=== PATIENT | female | born 1985 | race Caucasian/White ===

== ENCOUNTER 2016-09-24 16:26 | Emergency (ER) | payer SELFPAY ==
[2016-09-24 16:33] VITALS: TEMP 97.5
--- NOTE | 2016-09-24 17:09 | EDPHY ---
H & P Time Seen by Provider: 09/24/16 16:46 HPI/ROS: CHIEF COMPLAINT: Left woodson pain HISTORY OF PRESENT ILLNESS: 31-year-old female presents to the emergency department complaining of severe pain in her left anterior woodson. She states over last for 5 days she has had ongoing pain. She feels that it might be getting a bit better although has not resolved. Pain is especially worse when she tries to bear weight when she is on her feet for long period time. Denies any known trauma or injury although does have a history of restless leg syndrome and may have kicked the wall or piece of furniture at night. She does not notice any swelling. Denies any other trauma or injury. ROS: Denies numbness or tingling in her toes, pain in her left ankle or knee. Past Medical/Surgical History: Restless leg syndrome Social History: Recently moved here from [place] Smoking Status: Current every day smoker Physical Exam: On examination there is no obvious swelling noted to the left lower leg compared to the right side. She has a small area of excoriation to the left anterior, mid lower leg. No signs of cellulitis. No redness or warmth. She has reproducible pain with palpation along the anterior mid shaft of the tibia as well as just to the lateral, anterior aspect of the left lower leg. No palpable crepitus or other bony abnormality. Normal sensation to light touch. Strong dorsalis pedis pulse on the dorsal aspect of her left foot. Her left ankle is nontender. Left knee is nontender. No effusion noted to the ankle or the knee. Constitutional: Initial Vital Signs Temperature (C) 36.4 C 09/24/16 16:30 Heart Rate 116 H 09/24/16 16:30 Respiratory Rate 22 H 09/24/16 16:30 Blood Pressure 113/79 09/24/16 16:30 O2 Sat (%) 100 09/24/16 16:30 O2 Delivery Mode Room Air Allergies/Adverse Reactions: No Known Allergies Allergy (Unverified 09/24/16 16:30) Home Medications: Medication Instructions Recorded NK [No Known Home Meds] 09/24/16 MDM/Departure - MDM Imaging Results: Imaging Impressions Tibia/Fibula X-Ray 09/24/16 17:06 Impression: Negative. If clinically indicated a limited nuclear bone scan or noncontrast MRI would be definitive. ED Course/Re-evaluation: 31-year-old female presents to the emergency department with left woodson pain. She states that it is possible that she could have kicked the wall since she has severe restless leg syndrome. Patient does have reproducible pain with palpation to the anterior aspect of her left leg both along the midshaft of the tibia as well as along the tibialis anterior muscle. Patient has no pain at rest. I doubt compartment syndrome. Her compartments are soft. She has full range of motion of her left lower extremity. X-rays were negative for fracture. I doubt compression fracture. I doubt DVT. She has no calf pain or swelling. She has no calf tenderness with palpation. The patient was given orthopedic referral. She was given strict instructions to elevate her leg for comfort. She will take anti-inflammatories and return if she has any other concerns. - Depart Disposition: Home, Routine, Self-Care Clinical Impression: Contusion of left leg Qualifiers: Encounter type: initial encounter Qualified Code(s): S80.12XA - Contusion of left lower leg, initial encounter Condition: Good Instructions: Contusion in Adults (ED) Additional Instructions: Elevate your leg for comfort and support. You may apply ice as needed he is to help relieve pain. Ibuprofen 600 mg every 8 hours as needed for pain. Weightbear and activity as tolerated. I do not think you have any evidence of compartment syndrome. If you notice increasing swelling, pain especially at rest, or if you feel worse in any way, she should return to the emergency department immediately. Stand Alone Forms: Work Excuse Referrals: Bryce Daniel MD [Medical Doctor] - 2-3 days, call for appt. (Orthopedic surgeon on-call)
[2016-09-24 17:50] VITALS: BP 122/81; PULSE 91; RESP 18; O2SAT 95
== END 2016-09-24 17:50 | disposition home or self-care (01) ==
DX: S80.12XA Contusion of left lower leg, initial encounter (principal); F17.200 Nicotine dependence, unspecified, uncomplicated; X58.XXXA Exposure to other specified factors, initial encounter; Y99.8 Other external cause status; Y93.89 Activity, other specified

== ENCOUNTER 2017-10-31 13:46 | Inpatient (IN) | payer MEDICAID ==
--- NOTE | 2017-10-31 14:33 | EDPHY ---
H & P Stated Complaint: iv drug use/cellulitis r arm Time Seen by Provider: 10/31/17 13:53 HPI/ROS: Chief Complaint: Left wrist pain and swelling HPI: 32-year-old IV drug abuser presenting with worsening left pain redness and swelling for the last week. She states this started after she missed while injecting heroin and meth 1 week ago. She has a history of sutures abscesses in the past. Been having increasing redness. Increasing pain. It is quite swollen. Some subjective fevers or chills. No nausea or vomiting. Her last IV drug use was this morning. ROS: 10 systems were reviewed and were negative except those elements noted in the HPI. PMH: IV drug use Social History: Positive smoking, positive alcohol, IV heroin and meth Family History: non-contributory Physical Exam: Gen: Awake, Alert, No Distress HEENT: Nose: no rhinorrhea Eyes: PERRLA, EOMI Mouth: Moist mucosa Neck: Supple, no JVD Chest: nontender, lungs clear to auscultation Heart: S1, S2 normal, no murmur Abd: Soft, non-tender, no guarding Back: no CVA tenderness, no midline tenderness Ext: Right volar wrist is dramatically swollen with significant erythema, slight tenderness warm to touch. There is no lymphangitic streaking Skin: no rash Neuro: CN II-XII intact, Sensation grossly intact, Strength 5/5 in bilateral upper and lower extremities - Personal History LMP (Females 10-55): 8-14 Days Ago Current Tetanus/Diphtheria Vaccine: Yes - Medical/Surgical History Hx Asthma: No Hx Chronic Respiratory Disease: No Hx Diabetes: No Hx Cardiac Disease: No Hx Renal Disease: No Hx Cirrhosis: No Hx Alcoholism: No Hx HIV/AIDS: No Hx Splenectomy or Spleen Trauma: No Other PMH: denies - Social History Smoking Status: Current every day smoker Constitutional: Initial Vital Signs Temperature (C) 36.4 C 10/31/17 13:50 Heart Rate 74 10/31/17 13:50 Respiratory Rate 18 10/31/17 13:50 Blood Pressure 114/80 10/31/17 13:50 O2 Sat (%) 98 10/31/17 13:50 O2 Delivery Mode Room Air Allergies/Adverse Reactions: No Known Allergies Allergy (Verified 10/31/17 13:50) Home Medications: Medication Instructions Recorded NK [No Known Home Meds] 09/24/16 Medical Decision Making Procedures: Procedure: Abscess drainage. The patient's abscess was located on the right wrist. I obtained verbal consent from the patient to drain the abscess who was informed about the possibility of bleeding and pain. The abscess was incised with a 11 blade scalpel and a large amount of purulent drainage was expressed. I irrigated the wound and placed some packing. The patient tolerated the procedure well. The procedure was performed by myself. ED Course/Re-evaluation: 32-year-old woman with a deep right wrist sutures abscess with surrounding cellulitis. I have drained it with a large amount of pus and packing in place. IV is been placed. She will require IV antibiotics. Blood cultures and wound cultures have been ordered. I have ordered a g of vancomycin. Discussed with Dr. Yuan. He will admit to his service for further care. Departure - Departure Disposition: [facility] Inpatient Acute Clinical Impression: Abscess, Cellulitis Condition: Fair
[2017-10-31] MEDS ORDERED: VANCOMYCIN HCL/NORMAL SALINE 250 ML IV ONE (14:34)
[2017-10-31] MEDS ORDERED: ONDANSETRON 4 MG/2 ML VIAL IVP PRN (15:19)
[2017-10-31] MEDS ORDERED: ONDANSETRON DISINTEGRATING 4 MG TAB PO PRN (15:19)
[2017-10-31 15:28] LABS: PLATELET COUNT 229 10^3/uL (150-400)
[2017-10-31] MEDS ORDERED: HYDROmorphONE/DILAUDID 1 MG/ML INJ IVP ONE (16:02)
[2017-10-31] MEDS ORDERED: GADOBUTROL 10 ML VIAL IVP ONE (16:35)
--- NOTE | 2017-10-31 16:42 | GHP ---
DATE OF ADMISSION: 10/31/2017 HISTORY OF PRESENT ILLNESS: Ms. Velasquez is a pleasant 32-year-old female with a history of IV drug use and previous abscesses, presents with an abscess in her right forearm. She shot methamphetamine about 1 week ago and suspect she missed the vein. She had a local reaction with pain and swelling and erythema that perhaps got better for a couple days and then in the last 2 days she has had increased pain and increased swelling in her hands. She has also had subjective fevers and chills. She has been tested for HIV and hepatitis C 7 months ago and were negative. It sounds like she has an on and off use of IV drugs going over about a 10-year period. She does not have a rash in her skin. She has not had drenching night sweats. REVIEW OF SYSTEMS: Complete 10-point review of systems conducted. Negative except as noted in the HPI. PAST MEDICAL HISTORY: IV drug use, shooter's abscesses, childhood asthma. She was also told she had a cardiomyopathy as a child. She does not have heart failure symptoms now. ALLERGIES: No known drug allergies. HOME MEDICATIONS: None. SOCIAL HISTORY: IV methamphetamine and heroin in the past. She does smoke cigarettes. 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 FAMILY HISTORY: Reviewed, unremarkable. PHYSICAL EXAMINATION: VITAL SIGNS: Temp 36.4, blood pressure 114/80, pulse 74 , breathing 18 times a minute, 98% on room air. GENERAL: No acute distress, emotional. HEENT: Sclerae anicteric. Oropharynx clear. Mucous membranes moist. NECK: Supple. No lymphadenopathy or JVD. LUNGS: Clear to auscultation bilaterally. HEART: S1, S2. There may be a 2/6 holosystolic murmur. ABDOMEN: Soft, nontender, nondistended. LOWER EXTREMITIES: Without edema. Her right upper extremity is erythematous. There is pain in her forearm with flexion of her pinky, but otherwise she does not have it. She has a bandaged abscess on the volar aspect of her right forearm. The skin is without rash. I have discussed the case with Dr. Alcides Melchor and Dr. Gabriel Mcleod. LABS: White count 12, hematocrit 38.4, platelets are 229,000. Sodium 137, potassium 3.5, chloride 103, bicarb 22, BUN 6, creatinine 0.5. LFTs are normal. Gram stain of the wound shows 4+ polynuclear white cells, 3+ gram- positive cocci in clusters. There is no imaging. ASSESSMENT AND PLAN: A 32-year-old female with abscess related to IV drug use. 1. Abscess. This has been drained in the emergency department. Given the concern of her arm and the duration of symptoms, the concern is a deeper abscess. I have ordered an MRI. Will have Hand Surgery see her. 2. Gram-positive cocci abscess. She has been started on vancomycin. 3. Heart murmur. The patient is not particularly hyperdynamic when I see her. We will hold off on ordering an echocardiogram depending on whether not she has a positive blood cultures. 4. Smoking. Recommend cessation. 5. Prophylaxis: Sequential compression devices. 6. Disposition: Inpatient. /[id number]/MODL MTDD
[2017-10-31] MEDS: NS 1,000 ML IV SCH (18:25)
[2017-10-31] MEDS: oxyCODONE IR 5 MG TAB PO PRN ×2 (18:34→21:55)
--- NOTE | 2017-10-31 18:43 | GCON ---
DATE OF CONSULTATION: 10/31/2017 REASON FOR CONSULTATION: Shooter's abscess, right forearm, with swelling and pain in the hand. HPI: Greg is a 32-year-old who shot IV methamphetamine into her right forearm about a week ago. Erin gutierres developed pain, redness, swelling since then. That brought her to the emergency room. Worsening o saravanan the last 2 days. She has a history of IV drug abuse on and off for at least the last 10 years. She was seen in the emergency department. The shooter's abscess was debrided and irrigated there. D ue to the swelling in her hand an MRI was obtained and I was asked to consult, given the degree of ramos nd swelling she was having. PRIOR MEDICAL HISTORY: IV drug use with history of shooter's abscess. ALLERGIES: No known drug allergies. MEDICATIONS: None. SOCIAL HISTORY: Uses both IV methamphetamine and heroin. Smokes 1 pack per day. Occasional alcohol use. PHYSICAL EXAM: VITAL SIGNS: Blood pressure is 119/85, heart rate 74, respiratory rate is 16. Oxyge n saturation is 97% on room air. She is alert and oriented x3. HEENT: Normocephalic, atraumatic. Extraocular muscles are intact. NECK: Supple. There is no lymphadenopathy. No JVD. CHEST: Clear to auscultation bilaterally. CARDIOVASCULAR: Regular rate and rhythm. ABDOMEN: Soft, nontender, nondistended. EXTREMITIES: Right forearm. There is occlusive dressing in place with blood on the d ressing. Forearm is red on the ulnar side mainly. There is some firmness in the compartment, but it is nontender to palpation. She can move her flexor tendons without undue distress there is no palpable tenderness along those te ndons into her hand. The hand is swollen but the hand compartments are soft as well. She has a 2+ r adial and ulnar pulses. Sensation to light touch. Intact radial, ulnar, median nerve distributions. MRI: Poor quality due to motion artifact, but there are no obvious visible deep abscesses. There is a significant cellulitis focus, more on the ulnar side of her arm. ASSESSMENT: Abscess with surrounding cellulitis, right forearm. PLAN: We will continue the IV antibiotics, per Dr. Yuan. If we do not see clinical improvement ov er 24-48 hours, we may have to revisit the idea of a formal irrigation and debridement in the operati ng room to try and decompress the cellulitis. Will continue to follow her. /[id number]/MODL
[2017-10-31] MEDS: ACETAMINOPHEN 325 MG TAB PO PRN (22:59)
[2017-11-01] MEDS: NS 1,000 ML IV SCH (02:25)
[2017-11-01] MEDS ORDERED: VANCOMYCIN HCL/NORMAL SALINE 250 ML IV SCH (05:00)
--- NOTE | 2017-11-01 08:49 | HOSPPROG ---
Hospitalist Progress Note Assessment/Plan: #RUE abscess and cellulitis: Related to IVDU. S/p I&D in ED. Wound culture with GPCs. MRI showing cellulitis, myositis, and fascitis. - Continue IV vancomycin, await cultures - Hand surgery following, appreciate assistance - Hold on TTE unless blood cx + #IVDU: Recommended cessation. #Tobacco use: Nicotine replacement as needed VTE ppx: SCDs Diet: regular Dispo: remain inpatient for IV antibiotics Subjective: Symptoms overall improved since admission. Still having some pain. No fevers. Objective: Vital Signs Temp Pulse Resp BP Pulse Ox 36.8 C 52 L 16 129/79 H 99 11/01/17 07:51 11/01/17 07:51 11/01/17 07:51 11/01/17 07:51 11/01/17 07:51 Laboratory Results 10/31/17 15:05 10/31/17 15:05 10/31/17 11/01/17 11/02/17 05:59 05:59 05:59 Intake Total 270 Balance 270 - Physical Exam Constitutional: no apparent distress, appears nourished, not in pain Eyes: PERRL, anicteric sclera, EOMI Ears, Nose, Mouth, Throat: moist mucous membranes, hearing normal, ears appear normal, no oral mucosal ulcers Cardiovascular: regular rate and rhythym, no murmur, rub, or gallop Respiratory: no respiratory distress, no rales or rhonchi, clear to auscultation Gastrointestinal: normoactive bowel sounds, soft, non-tender abdomen, no palpable masses Skin: no rashes or abrasions, no fluctuance, no induration Neurologic: AAOx3, sensation intact bilaterally Psychiatric: interacting appropriately, not anxious, not encephalopathic, thought process linear ICD10 Worksheet Patient Problems: Problems Problem Status Onset Abscess Acute Cellulitis Acute
[2017-11-01] MEDS: oxyCODONE IR 5 MG TAB PO PRN ×4 (09:32→19:37)
--- NOTE | 2017-11-01 11:16 | PDMN ---
Medical Necessity Medical necessity: Pt meets IP criteria per MD; est los >2 mn for eval/tx of R forearm abscess r/t IV drug use s/p drainage in ED; concern for deeper abscess; requiring MRI, Surgery/Wound Care consults & IV abx; per H&P & order 10/31/17
[2017-11-01] MEDS: ACETAMINOPHEN 325 MG TAB PO PRN ×2 (11:40→18:19)
[2017-11-01] MEDS ORDERED: ALTEPLASE 2 MG VIAL IVP PRN (11:49)
[2017-11-01 16:50] LABS: PLATELET COUNT 237 10^3/uL (150-400)
[2017-11-01] MEDS: VANCOMYCIN 1.25 GM in NS 250 ML IV SCH (17:00)
[2017-11-01 17:02] LABS: INR 1.07 (0.83-1.16); PROTIME(PATIENT) 14.1 SEC (12.0-15.0)
--- NOTE | 2017-11-01 17:12 | ASMTCMCOM ---
CM Note CM Note Notes: Case Management Chart Review for Discharge Support: Greg is a 32 year old female admitted via [facility] ED for abscess related to IV drug use. Patient is under contact precautions. Care includes IV antibiotics, PICC line was inserted today & abscess is being observed for possible formal irrigation. CM to follow. Current Discharge Plan: Discharge TBD. Date Signed: 11/01/2017 05:12 PM Electronically Signed By:Jeanie Vail
--- NOTE | 2017-11-01 17:28 | SOAPPROG ---
SOJANES Progress Note Assessment/Plan: Assessment: Plan: 11/01/17 17:28 Cont IVabx Subjective: hand better but still painful at forearm Objective: redness at site of shooters abscess less swelling in hand can make fist without pain no tenderness over flexor tendons Vital Signs Temp Pulse Resp BP Pulse Ox 36.9 C 58 L 18 149/81 H 97 11/01/17 16:00 11/01/17 16:00 11/01/17 16:00 11/01/17 16:00 11/01/17 16:00 Laboratory Results 11/01/17 16:35 11/01/17 16:35 10/31/17 11/01/17 11/02/17 05:59 05:59 05:59 Intake Total 270 Balance 270 PT 14.1 SEC (12.0-15.0) 11/01/17 16:35 INR 1.07 (0.83-1.16) 11/01/17 16:35 ICD10 Worksheet Patient Problems: Problems Problem Status Onset Abscess Acute Cellulitis Acute
[2017-11-01] MEDS ORDERED: KETOROLAC 15 MG/1 ML SDV IVP ONE (20:30)
[2017-11-02] MEDS: NS 1,000 ML IV SCH (02:04)
[2017-11-02] MEDS: VANCOMYCIN 1.25 GM in NS 250 ML IV SCH ×2 (05:08→19:09)
[2017-11-02] MEDS: NICOTINE 21 MG/24 HR PATCH TD SCH (05:17)
[2017-11-02] MEDS: oxyCODONE IR 5 MG TAB PO PRN ×5 (05:23→22:42)
[2017-11-02] MEDS: ACETAMINOPHEN 325 MG TAB PO PRN (09:27)
--- NOTE | 2017-11-02 14:44 | HOSPPROG ---
Hospitalist Progress Note Assessment/Plan: DIAGNOSES: * cellulitis, abscess, myositis, fasciitis of right forearm related to IV drug use * MRSA growing from wound culture, so far negative blood cultures * ongoing use of IV heroin leading up to this admission she states to 3 times weekly, with prior history of longstanding IV drug use interrupted by some periods of sobriety; most recent use was IV heroin on the day of this admission * pain control issues * heart murmur; questionable history of some type of cardiomyopathy in childhood * childhood asthma PLANS: * Continue IV vancomycin, follow levels and renal function closely * At this point I do not think she needs a wound exploration, however she has of moderately large amount of very thick purulent fluid and giving her MRI findings I think that there is a moderately high chance that she could develop abscess or other complications requiring surgical exploration as we go along * Given her IV drug use would not discharge her until we have completed treatment for this * I have talked to her about her IV drug use and the possibility of entering same type of rehabilitation; she is open to this idea but concerned about what would be available and what expenses, she does have Medicaid I very long discussion with the patient about all of the above. She is minimizing the extent of her infection in our conversation; she is either unable to understand the importance of the examination findings are MRI findings , or else is frightened by the concept of a surgery, and not allowing herself to admit the seriousness of her situation. SUBJECTIVE: Continued pain but says that is improved from previous Denies chills or sweats Denies specific symptoms of narcotic withdrawal at this time OBJECTIVE Vitals reviewed: Stable without fever Turf Grower, my review: Exam: alert oriented, mildly anxious mildly uncomfortable skin warm dry color ok resps not labored lungs clear BSs heart regular abd soft nondistended nontender, bowel sounds present limbs right forearm with swelling, marked tenderness, still has very thick purulent fluid draining from her wound and I am able to express some amount from the wound additionally; no palpable fluctuance or crepitus, nothing that appears necrotic in terms of her skin. iv site ok I reviewed the patient's MRI images from the time of admission and agree with definite findings of myositis and fasciitis Objective: Vital Signs Temp Pulse Resp BP Pulse Ox 36.8 C 56 L 16 134/84 H 96 11/02/17 10:59 11/02/17 10:59 11/02/17 10:59 11/02/17 10:59 11/02/17 10:59 Laboratory Results 11/02/17 05:15 11/02/17 05:15 11/01/17 11/02/17 11/03/17 06:59 06:59 06:59 Intake Total 270 Balance 270 PT 14.1 SEC (12.0-15.0) 11/01/17 16:35 INR 1.07 (0.83-1.16) 11/01/17 16:35 - Time Spent With Patient Time Spent with Patient: greater than 35 minutes Time Spent with Patient: Greater than 35 minutes spent on this patients care, greater than 50% of time spent counseling, educating, and coordinating care regarding the above mentioned plan. ICD10 Worksheet Patient Problems: Problems Problem Status Onset Abscess Acute Cellulitis Acute
[2017-11-02] MEDS: VANCOMYCIN HCL/NORMAL SALINE 250 ML IV SCH (17:50)
--- NOTE | 2017-11-02 20:20 | SOAPPROG ---
SOAP Progress Note Assessment/Plan: Assessment: Plan: 11/01/17 17:28 Cont IVabx 11/02/17 20:19 cellulitis/shooters abscess FA clinical improvement cont IVabx Subjective: Less pain today moving fingers better Objective: dressing changed less redness on forearm less swelling in hand no evidence of tenosynovitis Vital Signs Temp Pulse Resp BP Pulse Ox 36.8 C 48 L 16 165/99 H 94 11/02/17 19:28 11/02/17 19:28 11/02/17 19:28 11/02/17 19:28 11/02/17 19:28 Laboratory Results 11/02/17 05:15 11/02/17 05:15 11/01/17 11/02/17 11/03/17 05:59 05:59 05:59 Intake Total 270 Balance 270 PT 14.1 SEC (12.0-15.0) 11/01/17 16:35 INR 1.07 (0.83-1.16) 11/01/17 16:35 ICD10 Worksheet Patient Problems: Problems Problem Status Onset Abscess Acute Cellulitis Acute
[2017-11-03] MEDS: VANCOMYCIN HCL/NORMAL SALINE 250 ML IV SCH ×3 (01:40→17:38)
[2017-11-03] MEDS: oxyCODONE IR 5 MG TAB PO PRN ×6 (01:47→21:16)
[2017-11-03] MEDS: NICOTINE 21 MG/24 HR PATCH TD SCH (07:52)
--- NOTE | 2017-11-03 13:23 | SOAPPROG ---
SOAP Progress Note Assessment/Plan: Assessment: Greg is s/o shooters abscess. She reports her pain and swelling have continued to improve since yesterday. PE: Erythema and swelling have improved Dressing was changed this AM and is clean and dry No pain with gentle ROM of the wrist and digits ROM of the digits improved per patient Plan: Continue IV antbx per infectious disease Continue dressing changes 11/03/17 13:22 Objective: Vital Signs Temp Pulse Resp BP Pulse Ox 36.3 C 54 L 16 135/85 H 96 11/03/17 11:44 11/03/17 11:44 11/03/17 11:44 11/03/17 11:44 11/03/17 11:44 Laboratory Results 11/02/17 05:15 11/02/17 05:15 11/02/17 11/03/17 11/04/17 05:59 05:59 05:59 Intake Total 250 Balance 250 PT 14.1 SEC (12.0-15.0) 11/01/17 16:35 INR 1.07 (0.83-1.16) 11/01/17 16:35 ICD10 Worksheet Patient Problems: Problems Problem Status Onset Abscess Acute Cellulitis Acute
--- NOTE | 2017-11-03 14:49 | ASMTCMCOM ---
CM Note CM Note Notes: Spoke with patient today who states she was going to school and working in [place]. When she moved to [place], [place] she says she just fell off the wagon and used. Patient was willing to complete the CAGE and states she has a friend who has offered to go to meetings with her. Patient was given resources for all the Rehab facilities and programs accepting Medicaid. She was also given information on medical detox and NA meetings in [place]. Patient plans to work on her sobriety and get a job when she is medically able to interview.She states she is not interested in doing drugs at this time and has a strong desire to get her life back on track. No further needs at this time. CM available if D/C needs arise. Date Signed: 11/03/2017 02:49 PM Electronically Signed By:Rochelle Head LCSW
--- NOTE | 2017-11-03 14:52 | ASMTCAGE ---
CAGE Do you feel you ought to Answers: Yes cut down on your drinking or drug use? Do people annoy you by Answers: No criticizing your drinking or drug use? Do you feel guilty about Answers: Yes your drinking or drug use? Do you drink or use drugs Answers: No first thing in the morning ([employer])? Date Signed: 11/03/2017 02:51 PM Electronically Signed By:Rochelle Head LCSW
[2017-11-03] MEDS: ACETAMINOPHEN 325 MG TAB PO PRN (15:59)
--- NOTE | 2017-11-03 16:35 | HOSPPROG ---
Hospitalist Progress Note Assessment/Plan: DIAGNOSES: * cellulitis, abscess, myositis, fasciitis of right forearm related to IV drug use * MRSA growing from wound culture, so far negative blood cultures * ongoing use of IV heroin leading up to this admission she states to 3 times weekly, with prior history of longstanding IV drug use interrupted by some periods of sobriety; most recent use was IV heroin on the day of this admission * pain control issues * heart murmur; questionable history of some type of cardiomyopathy in childhood * childhood asthma stable at this time PLANS: * Continue IV vancomycin, follow levels and renal function closely * At this point I do not think she needs a wound exploration, however she has of moderately large amount of very thick purulent fluid and giving her MRI findings I think that there is a moderately high chance that she could develop abscess or other complications requiring surgical exploration as we go along * Given her IV drug use would not discharge her until we have completed treatment for this infection * I have talked to her about her IV drug use and the possibility of entering same type of rehabilitation; she is open to this idea but concerned about what would be available and what expenses, she does have Medicaid SUBJECTIVE: Notable decrease in pain overnight OBJECTIVE Vitals reviewed: Stable without fever Back Facer, my review: Exam: alert oriented, mildly anxious mildly uncomfortable skin warm dry color ok resps not labored lungs clear BSs heart regular abd soft nondistended nontender, bowel sounds present limbs decreased edema overall in her right forearm though the dorsum of the hand is still quite edematous though not as tender today. Little redness or heat. Good motion at all joints in the upper extremity, less drainage from wound than yesterday iv site ok I have reviewed the patient's MRI images from the time of admission and agree with definite findings of myositis and fasciitis Objective: Vital Signs Temp Pulse Resp BP Pulse Ox 36.8 C 53 L 16 147/91 H 98 11/03/17 15:54 11/03/17 15:54 11/03/17 15:54 11/03/17 15:54 11/03/17 15:54 Laboratory Results 11/02/17 05:15 11/02/17 05:15 11/02/17 11/03/17 11/04/17 06:59 06:59 06:59 Intake Total 250 Balance 250 PT 14.1 SEC (12.0-15.0) 11/01/17 16:35 INR 1.07 (0.83-1.16) 11/01/17 16:35 ICD10 Worksheet Patient Problems: Problems Problem Status Onset Abscess Acute Cellulitis Acute
[2017-11-04] MEDS: VANCOMYCIN HCL/NORMAL SALINE 250 ML IV SCH ×3 (01:00→17:17)
[2017-11-04] MEDS: oxyCODONE IR 5 MG TAB PO PRN ×3 (01:21→22:23)
[2017-11-04] MEDS: NICOTINE 21 MG/24 HR PATCH TD SCH (09:37)
[2017-11-04] MEDS: ACETAMINOPHEN 325 MG TAB PO PRN ×3 (09:51→22:22)
--- NOTE | 2017-11-04 13:40 | HOSPPROG ---
Hospitalist Progress Note Assessment/Plan: DIAGNOSES: * cellulitis, abscess, myositis, fasciitis of right forearm related to IV drug use * MRSA growing from wound culture, so far negative blood cultures * ongoing use of IV heroin leading up to this admission she states to 3 times weekly, with prior history of longstanding IV drug use interrupted by some periods of sobriety; most recent use was IV heroin on the day of this admission * pain control issues * heart murmur; questionable history of some type of cardiomyopathy in childhood * childhood asthma stable at this time PLANS: * Continue IV vancomycin, follow levels and renal function closely * will add some NSAID and some clonidine now, prepare to start tapering her oxycodone doses here * Given her IV drug use would not discharge her until we have completed treatment for this infection * I have talked to her about her IV drug use and the possibility of entering same type of rehabilitation; she is open to this idea but concerned about what would be available and what expenses, she does have Medicaid SUBJECTIVE: Notable decrease in pain overnight OBJECTIVE Vitals reviewed: Stable without fever [place] Hand, my review: Exam: alert oriented, mildly anxious mildly uncomfortable skin warm dry color ok resps not labored lungs clear BSs heart regular abd soft nondistended nontender, bowel sounds present limbs continued decrease in edema, still some drainage from wound picc site looks good Objective: Vital Signs Temp Pulse Resp BP Pulse Ox 37.0 C 51 L 16 141/75 H 95 11/04/17 11:11 11/04/17 11:11 11/04/17 11:11 11/04/17 11:11 11/04/17 11:11 Laboratory Results 11/02/17 05:15 11/02/17 05:15 11/03/17 11/04/17 11/05/17 06:59 06:59 06:59 Intake Total 250 550 Balance 250 550 PT 14.1 SEC (12.0-15.0) 11/01/17 16:35 INR 1.07 (0.83-1.16) 11/01/17 16:35 ICD10 Worksheet Patient Problems: Problems Problem Status Onset Abscess Acute Cellulitis Acute
--- NOTE | 2017-11-04 14:30 | SOAPPROG ---
SOAP Progress Note Assessment/Plan: Assessment: Greg is s/o shooters abscess. She reports her pain and swelling have continued to improve since yesterday. She has been working with OT and reports ROM and pain have improved. PE: Erythema and swelling have improved since yesterday Dressing removed. Scant amount of purulent drainage. No pain with gentle ROM of the wrist and digits ROM of the digits improved per patient Plan: Continue IV antbx per infectious disease Continue dressing changes 11/04/17 14:29 Objective: Vital Signs Temp Pulse Resp BP Pulse Ox 37.0 C 51 L 16 141/75 H 95 11/04/17 11:11 11/04/17 11:11 11/04/17 11:11 11/04/17 11:11 11/04/17 11:11 Laboratory Results 11/02/17 05:15 11/02/17 05:15 11/03/17 11/04/17 11/05/17 05:59 05:59 05:59 Intake Total 250 550 Balance 250 550 PT 14.1 SEC (12.0-15.0) 11/01/17 16:35 INR 1.07 (0.83-1.16) 11/01/17 16:35 ICD10 Worksheet Patient Problems: Problems Problem Status Onset Abscess Acute Cellulitis Acute
[2017-11-05] MEDS: oxyCODONE IR 5 MG TAB PO PRN ×4 (01:51→21:17)
[2017-11-05] MEDS: VANCOMYCIN HCL/NORMAL SALINE 250 ML IV SCH ×3 (01:52→17:47)
[2017-11-05] MEDS: NICOTINE 21 MG/24 HR PATCH TD SCH (09:18)
--- NOTE | 2017-11-05 11:13 | ASMTCMCOM ---
CM Note CM Note Notes: Plan remains the same, pt will stay here until she finishes her IV abx. She has been given drug resources. She will dc w/support of boyfriend when medically stable. CM available for any changes. DC Plan: Independent Date Signed: 11/05/2017 11:12 AM Electronically Signed By:Natalia Valle RN
--- NOTE | 2017-11-05 13:14 | SOAPPROG ---
SOAP Progress Note Assessment/Plan: Assessment: Greg is s/o shooters abscess. She reports her pain and swelling have continued to improve since yesterday. She has been working with OT and reports ROM and pain have improved. PE: Erythema and swelling have improved since yesterday Dressing removed. Scant amount of purulent drainage. No pain with gentle ROM of the wrist and digits ROM of the digits improved per patient Plan: Continue IV antbx per infectious disease Continue dressing changes Anticipate will resolve without operative intervention 11/05/17 13:13 Objective: Vital Signs Temp Pulse Resp BP Pulse Ox 36.8 C 42 L 16 120/61 95 11/05/17 08:00 11/05/17 12:00 11/05/17 12:00 11/05/17 12:00 11/05/17 12:00 Laboratory Results 11/02/17 05:15 11/02/17 05:15 11/04/17 11/05/17 11/06/17 05:59 05:59 05:59 Intake Total 550 360 Balance 550 360 PT 14.1 SEC (12.0-15.0) 11/01/17 16:35 INR 1.07 (0.83-1.16) 11/01/17 16:35 ICD10 Worksheet Patient Problems: Problems Problem Status Onset Abscess Acute Cellulitis Acute
--- NOTE | 2017-11-05 19:15 | HOSPPROG ---
Hospitalist Progress Note Assessment/Plan: DIAGNOSES: * cellulitis, abscess, myositis, fasciitis of right forearm related to IV drug use * MRSA growing from wound culture, so far negative blood cultures * ongoing use of IV heroin leading up to this admission she states to 3 times weekly, with prior history of longstanding IV drug use interrupted by some periods of sobriety; most recent use was IV heroin on the day of this admission * pain control issues * heart murmur; questionable history of some type of cardiomyopathy in childhood * childhood asthma stable at this time PLANS: * Continue IV vancomycin, follow levels and renal function closely * Continue NSAID and some clonidine now, start tapering her oxycodone doses here * Given her IV drug use would not discharge her until we have completed treatment for this infection * I have talked to her about her IV drug use and the possibility of entering same type of rehabilitation; she is open to this idea but concerned about what would be available and what expenses, she does have Medicaid SUBJECTIVE: Continues to feel better each day No side effect of antibiotics OBJECTIVE Vitals reviewed: Stable without fever Chief Of Vital Statistics, my review: Exam: alert oriented, mildly anxious mildly uncomfortable skin warm dry color ok resps not labored lungs clear BSs heart regular abd soft nondistended nontender, bowel sounds present limbs edema of Hand notably less today, less drainage from wound on forearm Lab data Vanco level 12 today Objective: Vital Signs Temp Pulse Resp BP Pulse Ox 36.9 C 50 L 18 128/78 H 94 11/05/17 15:10 11/05/17 15:10 11/05/17 15:10 11/05/17 15:10 11/05/17 15:10 Laboratory Results 11/02/17 05:15 11/02/17 05:15 11/04/17 11/05/17 11/06/17 06:59 06:59 06:59 Intake Total 550 360 Balance 550 360 PT 14.1 SEC (12.0-15.0) 11/01/17 16:35 INR 1.07 (0.83-1.16) 11/01/17 16:35 ICD10 Worksheet Patient Problems: Problems Problem Status Onset Abscess Acute Cellulitis Acute
[2017-11-06] MEDS: VANCOMYCIN HCL/NORMAL SALINE 250 ML IV SCH ×3 (01:17→17:48)
[2017-11-06] MEDS: NICOTINE 21 MG/24 HR PATCH TD SCH (09:31)
--- NOTE | 2017-11-06 13:08 | HOSPPROG ---
Hospitalist Progress Note Assessment/Plan: DIAGNOSES: * cellulitis, abscess, myositis, fasciitis of right forearm related to IV drug use * MRSA growing from wound culture, so far negative blood cultures * ongoing use of IV heroin leading up to this admission she states to 3 times weekly, with prior history of longstanding IV drug use interrupted by some periods of sobriety; most recent use was IV heroin on the day of this admission * pain control issues * heart murmur; questionable history of some type of cardiomyopathy in childhood * childhood asthma stable at this time PLANS: * I have ordered a ultrasound to assess for any persistent fluid collection in the forearm * Continue open drainage from her incision site with dressing changes daily and as needed * Continue IV vancomycin, follow levels and renal function closely * Continue NSAID and clonidine; she is self tapering oxycodone usage here successfully * Given her IV drug use would not discharge her until we have completed treatment for this infection; which he for 10-14 days with antibiotics depending on the progress of her wound drainage, any further fluid collections or other signs of persisting infection * I have talked to her about her IV drug use and the possibility of entering same type of rehabilitation; she is open to this idea but concerned about what would be available and what expenses, she does have Medicaid SUBJECTIVE: Very little pain at this time, still some drainage from wound She has decreased her use of oxycodone to 3 times daily for the last 2 days and none so far today OBJECTIVE Vitals reviewed: Stable without fever 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 There is however in the mid forearm surrounding her initial incision site at the abscess a slight increase in induration and bumpiness to the subcutaneous soft tissues on the extensor and distal aspects from the incision site. Unable to definitely detect any fluctuance beneath this but could not rule it out. Minimal drainage from the wound at this time. No erythema anywhere. Still moving all joints normally. Lab data Renal function continues to be normal on vancomycin, good electrolytes Objective: Vital Signs Temp Pulse Resp BP Pulse Ox 36.8 C 48 L 16 125/76 H 97 11/06/17 07:46 11/06/17 07:46 11/06/17 07:46 11/06/17 10:03 11/06/17 07:46 Microbiology 10/31/17 15:05 Blood Culture - Final Blood 10/31/17 15:38 Blood Culture - Final Blood Laboratory Results 11/02/17 05:15 11/06/17 05:00 11/05/17 11/06/17 11/07/17 06:59 06:59 06:59 Intake Total 360 520 Output Total 0 Balance 360 520 0 PT 14.1 SEC (12.0-15.0) 11/01/17 16:35 INR 1.07 (0.83-1.16) 11/01/17 16:35 ICD10 Worksheet Patient Problems: Problems Problem Status Onset Abscess Acute Cellulitis Acute
[2017-11-06] MEDS: oxyCODONE IR 5 MG TAB PO PRN (23:50)
[2017-11-07] MEDS: VANCOMYCIN HCL/NORMAL SALINE 250 ML IV SCH ×2 (01:08→09:13)
[2017-11-07] MEDS: NICOTINE 21 MG/24 HR PATCH TD SCH (09:13)
--- NOTE | 2017-11-07 10:04 | HOSPPROG ---
Hospitalist Progress Note Assessment/Plan: 32-year-old IV drug user comes in with cellulitis and abscess of her right forearm. This is related to IV drug use with the MRSA growing from wound culture but negative blood cultures # abscess from IV drug use follow-up ultrasound shows no significant fluid collection. Currently on IV Vanco for 10-14 days. Significant improvement in wound over the last couple days * Will discuss with ID regarding changing to oral antibiotics like doxycycline or Bactrim since the staph is sensitive to both of those. * She will also need follow-up. # ongoing use of IV heroin, had been sober for 5 years but recently started using again. She moved here from [place] about 6 months ago and has no support system # heart murmur since childhood, sounds like a flow murmur and negative blood cultures. # bradycardia, assymptomatic while asleep. ECG reviewed and looked otherwise normal. ECHO pending and if normal can dc later. Subjective: Patient new to me and chart reviewed. She says her arm feels much improved at this time wound looks good. Objective: Vital Signs Temp Pulse Resp BP Pulse Ox 36.9 C 42 L 12 126/70 H 97 11/07/17 07:45 11/07/17 07:45 11/07/17 07:45 11/07/17 07:45 11/07/17 07:45 Microbiology 10/31/17 15:05 Blood Culture - Final Blood 10/31/17 15:38 Blood Culture - Final Blood Laboratory Results 11/02/17 05:15 11/06/17 05:00 11/06/17 11/07/17 11/08/17 05:59 05:59 05:59 Intake Total 520 250 Output Total 0 Balance 520 250 PT 14.1 SEC (12.0-15.0) 11/01/17 16:35 INR 1.07 (0.83-1.16) 11/01/17 16:35 - Physical Exam Constitutional: no apparent distress Eyes: PERRL Ears, Nose, Mouth, Throat: moist mucous membranes Cardiovascular: regular rate and rhythym, systolic murmur Respiratory: no respiratory distress, no rales or rhonchi Gastrointestinal: normoactive bowel sounds, soft, non-tender abdomen Genitourinary: no bladder fullness Skin: warm, other (Small area of abscess with small open incision site noted on her forearm. This has some mild erythema but no significant exudate) Neurologic: AAOx3 Psychiatric: interacting appropriately, not anxious ICD10 Worksheet Patient Problems: Problems Problem Status Onset Abscess Acute Cellulitis Acute
[2017-11-07] MEDS: oxyCODONE IR 5 MG TAB PO PRN ×3 (10:27→16:21)
[2017-11-07] MEDS ORDERED: DOXYCYCLINE HYCLATE 100 MG CAP/TAB PO SCH ×2 (11:00)
--- NOTE | 2017-11-07 11:01 | ASMTCMCOM ---
CM Note CM Note Notes: Pt here for abcess from IV heroin use, will likely transition to PO abx and dc with support of boyfriend. Pt was given resources for help with managing sobriety. DC Plan: Independent Date Signed: 11/07/2017 11:00 AM Electronically Signed By:Natalia Valle RN
[2017-11-07] MEDS: ACETAMINOPHEN 325 MG TAB PO PRN (13:43)
--- NOTE | 2017-11-07 15:58 | CPEKG ---
Test Reason : OPEN Blood Pressure : / mmHG Vent. Rate : 039 BPM Atrial Rate : 038 BPM P-R Int : 142 ms QRS Dur : 093 ms QT Int : 490 ms P-R-T Axes : 016 064 031 degrees QTc Int : 395 ms Sinus bradycardia Minimal ST depression Confirmed by Malvin Son ([id number]) on 11/07/2017 3:57:32 PM Referred By: Confirmed By:Malvin Son
--- NOTE | 2017-11-07 16:00 | ECHO ---
[email or web address] [address] [address] Main: [phone] Fax: Transthoracic Echocardiogram Name: KYLIE TOVAR MR#: [id number] Study Date: 11/07/2017 Study Time: 02:33 PM Date of : 1985 Age: 32 year(s) Height: 170.2 cm (67 in.) Weight: 63.5 kg (140 lb.) BSA: 1.74 m2 Gender: Female Examination: Echo Indication: Bradycardia, Pectus Excavatum, PIC line Image Quality: Contrast: Requested by: Dileep Lucas BP: 121 mmHg/71 mmHg Heart Rate: Rhythm: Indication: Bradycardia, Pectus Excavatum, PIC line Procedure Staff Die Setter: Krishna Santiago RDCS Reading Physician: Malvin Son MD Requesting Provider: Conclusions: Borderline concentric LV hypertrophy. Normal global systolic LV function. EF is 65 %. Normal diastolic LV function. Off axis views due to pectus excavatum.. Catheter discernible in right ventricle. Measurements: Chambers Valvular Assessment AV/MV Valvular Assessment TV/PV Normal Normal Normal Name Value Range Name Value Range Name Value Range Ao Misty (MM): 2.9 cm (2.2 cm-3.7 AV Vmax: 1.64 m/s (1 m/s-1.7 PV Vmax: 0.88 m/s (0.6 m/s-0.9 cm) m/s) m/s) IVSd (2D): 1.1 cm (0.6 cm-1.1 AV maxP mmHg ( - ) PV PGmax: 3 mmHg ( - ) cm) LVOT Vmax: 1.03 m/s (0.7 m/s-1.1 LVDd (2D): 3.2 cm (3.9 cm-5.3 m/s) cm) MV E Vmax: 1.33 m/s ( - ) LVDs (2D): 2.1 cm (2.1 cm-4 MV A Vmax: 0.66 m/s ( - ) cm) MV E/A: 2.02 ( - ) LVPWd (2D): 1.0 cm ( - ) LVEF (2D): 65 (>=54 %) Continued Measurements: Chambers Valvular Assessment AV/MV Name Value Name Value LADs Lon.1 cm MV E' Septal: 0.11 m/s LA Area: 17.5 cm2 MV E/E' Septal: 11.70 MV E/E' Lateral: 9.20 Patient: KYLIE TOVAR Study Date: 11/07/2017 Page 1 of 2 02:33 PM Findings: Left Ventricle: Normal size left ventricle. Borderline concentric LV hypertrophy. Normal global systolic LV function. EF is 65 %. No regional wall motion abnormality. Normal diastolic LV function. Off axis views due to pectus excavatum.. Right Ventricle: Normal size right ventricle. Normal RV function. Catheter discernible in right ventricle. Left Atrium: The left atrium is normal in size. Right Atrium: The right atrium is normal in size. Mitral Valve: The mitral valve is normal in appearance and function. Trivial mitral valve regurgitation. Aortic Valve: The aortic valve is tri-leaflet and functions normally. Tricuspid Valve: The tricuspid valve appears normal. The tricuspid valve is normal in appearance and function. Pulmonic Valve: The pulmonic valve is normal in appearance and function. Aorta: The aorta is normal. Pericardium: No pericardial effusion. (No Signature Object) Patient: KYLIE TOVAR Study Date: 11/07/2017 Page 2 of 2 02:33 PM [id number]
[2017-11-07 16:02] VITALS: BP 140/76
--- NOTE | 2017-11-07 16:14 | ASMTCMCOM ---
CM Note CM Note Notes: CM spoke w/, MAP pt's antibiotics and information given on scheduling and appt with the [facility]. DC Plan: Independent Date Signed: 11/07/2017 04:09 PM Electronically Signed By:Natalia Valle RN
--- NOTE | 2017-11-07 16:16 | ASMTLACE ---
TALIAE Length of stay for Answers: 4-6 days current admission Acuity / Level of Answers: Yes Care: Did the patient have an inpatient admission? # of Emergency department Answers: 1-2 visits in the last 6 months Social determinants Answers: History of substance abuse (ETOH, street drugs, prescription drugs, etc.) Score: 11 Date Signed: 11/07/2017 04:15 PM Electronically Signed By:Natalia Valle RN
--- NOTE | 2017-11-07 18:14 | GDS ---
DIAGNOSES: 1. Abscess, right forearm due to intravenous drug popping, intravenous drug use. 2. Asymptomatic bradycardia while sleeping. 3. Ongoing intravenous heroin use. 4. Homelessness. CONSULTATIONS: Orthopedics. HOSPITAL COURSE: The patient is a 32-year-old, IV heroin user, who comes in with a right forearm inf ection. Orthopedics was consulted on the day of admission, given the significant abscess formation a nd large involvement of the hand. They monitored this on IV antibiotics and over the course of her h ospitalization, her swelling went down to a point where she had minimal swelling on her hand. She ramos d full range of motion and had minimal pain. At the time of discharge, she has no exudates, minimal erythema, and slight swelling, but no streaking and no swelling on her hand. We will stop the IV van comycin, and place her on doxycycline, which should cover her MRSA adequately for the next week. She should come back to the hospital should her infection get worse. I advised her to stop using IV linsey gs. During her hospitalization she had an episode of asymptomatic bradycardia. Echocardiogram was n ormal. EKG was normal. Discussed briefly with Cardiology who reviewed the studies and felt that she needed no further evaluation. CONDITION ON DISCHARGE: Good. DISCHARGE MEDICATIONS: Doxycycline 100 mg p.o. b.i.d. FOLLOWUP: She needs to establish care with [facility]ain[facility] Mendiola and will give her that information at the time of discharge. Total time spent with patient on day of discharge and coordination of care is 35 minutes. /[id number]
== END 2017-11-07 17:00 | disposition home or self-care (01) | DRG 364 ==
LOC: F3E 17:15
PROVIDERS: ADMIT Internal Medicine; ATTEND Internal Medicine
PROC: 0J9G0ZZ Drainage of Right Lower Arm Subcutaneous Tissue and Fascia, Open Approach (ICD-10-PCS; principal; 2017-10-31)
PROC: 02H633Z Insertion of Infusion Device into Right Atrium, Percutaneous Approach (ICD-10-PCS; 2017-11-01)
DX: L02.413 Cutaneous abscess of right upper limb (principal); B95.62 Methicillin resistant Staphylococcus aureus infection as the cause of diseases classified elsewhere; M72.8 Other fibroblastic disorders; F11.90 Opioid use, unspecified, uncomplicated; R00.1 Bradycardia, unspecified; Z59.0 Homelessness; Z72.0 Tobacco use
CPT/HCPCS: 97165-GO; 97530-GO; A9585; C1751; J1170; J1885; J3370